=== PATIENT | male | born 1980 | race African-American/Black ===

== ENCOUNTER 2020-10-05 18:51 | Emergency (ER) | payer OTHER ==
[2020-10-05 18:58] VITALS: TEMP 97; BMI 32.5
[2020-10-05 20:50] LABS: BASO % 0.9 % (0-2.0); EOS % 3.9 % (0-4.5); HEMATOCRIT 55.3 % (35.4-49); HEMOGLOBIN 18.4 GM/dL (11.7-16.9); LYMPH % 25.8 % (8-40); MCH 29.3 pg (25.7-33.7); MCHC 33.3 g/dl (32.0-35.9); MEAN CELL VOLUME 88.1 fl (80-96); MONO % 9.1 % (3.8-10.2); NEUT % 60.3 % (42.8-82.8); PLATELET COUNT 230 10^3/uL (134-434); RBC 6.28 M/mm3 (4.00-5.60); RDW 14.3 % (11.9-15.9); WHITE BLOOD COUNT 8.9 K/mm3 (4.0-10.0)
[2020-10-05 21:09] LABS: CHLORIDE 98 mmol/L (98-107); SODIUM 136 mmol/L (136-145)
[2020-10-05 21:11] LABS: ALBUMIN 4.2 g/dl (3.4-5.0); ANION GAP 8 MMOL/L (8-16); BLOOD UREA NITROGEN 10.3 mg/dL (7-18); CALCIUM 9.5 mg/dL (8.5-10.1); CO2 30 mmol/L (21-32); GLUCOSE,RANDOM 80 mg/dL (74-106)
[2020-10-05 21:14] LABS: CREATININE 1.5 mg/dL (0.55-1.3); SGOT/AST 38 U/L (15-37); SGPT/ALT 28 U/L (13-61)
[2020-10-05 21:16] LABS: BILIRUBIN,TOTAL 0.8 mg/dL (0.2-1); TOT PROT 8.1 g/dl (6.4-8.2)
[2020-10-05 21:17] LABS: ALK PHOS 62 U/L (45-117)
[2020-10-05 22:53] LABS: EPI CELLS 4 /uL (0-25.1); HYALINE CASTS 0 /uL (0-3.1); URINE APPEARANCE CLEAR; URINE BACTERIA 6 /uL (0-1359); URINE BILIRUBIN NEGATIVE (NEGATIVE); URINE COLOR YELLOW; URINE GLUCOSE (UA) NEGATIVE (NEGATIVE); URINE KETONE TRACE (NEGATIVE); URINE LEUK ESTERASE NEGATIVE (NEGATIVE); URINE NITRITE NEGATIVE (NEGATIVE); URINE PROTEIN NEGATIVE (NEGATIVE); URINE WBC 3 /uL (0-25.8)
[2020-10-05 23:16] LABS: URINE RBC 192 /uL (0-23.9)
[2020-10-05 23:19] VITALS: BP 134/85; PULSE 103
== END 2020-10-05 23:32 | disposition home or self-care (01) ==
LOC: JER 18:51
DX: M79.602 Pain in left arm (principal); R20.2 Paresthesia of skin
CPT/HCPCS: 36415; 71046-TC-FY; 80053; 81003; 84484; 85025; 87086; 93005; 93010; 99285-25

== ENCOUNTER 2021-08-19 02:13 | Inpatient (IN) | payer SELFPAY ==
[2021-08-19 02:51] VITALS: BMI 31.3
[2021-08-19] MEDS ORDERED: SODIUM CHLORIDE 0.9% 500 ML INFUS.BAG IV ONE (03:05)
[2021-08-19] MEDS ORDERED: LORazepam 2 MG/ML SDV VIAL IVPUSH ONE ×2 (03:05→05:20)
[2021-08-19 03:43] LABS: BASO % 0.5 % (0-2.0); EOS % 0.1 % (0-4.5); HEMATOCRIT 43.9 % (35.4-49); HEMOGLOBIN 15.1 GM/dL (11.7-16.9); LYMPH % 12.8 % (8-40); MCH 29.9 pg (25.7-33.7); MCHC 34.3 g/dl (32.0-35.9); MEAN CELL VOLUME 87.2 fl (80-96); MEAN PLT VOLUME 8.4 fl (7.5-11.1); MONO % 5.8 % (3.8-10.2); NEUT % 80.8 % (42.8-82.8); PLATELET COUNT 285 10^3/uL (134-434); RBC 5.04 M/mm3 (4.00-5.60); RDW 13.2 % (11.9-15.9); WHITE BLOOD COUNT 14.2 K/mm3 (4.0-10.0)
[2021-08-19 03:50] LABS: INR 1.06 (0.83-1.09); PROTHROMBIN TIME (PATIENT) 12.2 SEC (9.7-13.0)
[2021-08-19 03:53] LABS: ACTIVATED PTT 25.4 SECONDS (25.2-36.5)
[2021-08-19 04:05] LABS: CALCIUM 9.7 mg/dL (8.5-10.1)
[2021-08-19 04:06] LABS: ALBUMIN 3.9 g/dl (3.4-5.0)
[2021-08-19 04:09] LABS: CREATININE 1.6 mg/dL (0.55-1.3)
[2021-08-19 04:11] LABS: BILIRUBIN,TOTAL 0.8 mg/dL (0.2-1); TOT PROT 7.6 g/dl (6.4-8.2)
[2021-08-19 04:14] LABS: N-TERMINAL BNP 374.7 pg/ml (5-125)
[2021-08-19] MEDS ORDERED: ASPIRIN 81 MG CHEWABLE TABLETS PO ONE (04:39)
[2021-08-19] MEDS ORDERED: HEPARIN NA (PORCINE) 5,000 UNITS/ML 1ML VIAL IVPUSH PRN ×2 (04:51)
[2021-08-19] MEDS ORDERED: HEPARIN NA (PORCINE) 5,000 UNITS/ML 1ML VIAL IVPUSH ONE (04:51)
[2021-08-19] MEDS ORDERED: ATORVASTATIN CA 80 MG TABLET (FP) PO ONE (04:54)
[2021-08-19] MEDS ORDERED: HEPARIN - 25,000 UNIT in SODIUM CHLORIDE 495 ML IV SCH (05:00)
[2021-08-19] MEDS ORDERED: ATORVASTATIN CA 80 MG TABLET (FP) ONE (05:46)
[2021-08-19] MEDS ORDERED: HEPARIN NA (PORCINE) 5,000 UNITS/ML 1ML VIAL ONE (05:47)
[2021-08-19] MEDS ORDERED: ASPIRIN 81 MG CHEWABLE TABLETS ONE (05:47)
[2021-08-19] MEDS ORDERED: NICOTINE 14 MG/24 HOURS TOPICAL PATCH TD SCH (10:00)
[2021-08-19] MEDS ORDERED: diazePAM 5 MG TABLET PO PRN (11:19)
[2021-08-19] MEDS ORDERED: CLOPIDOGREL BISULFATE 75 MG TABLET (FP) PO SCH (11:30)
[2021-08-19] MEDS ORDERED: CLOPIDOGREL BISULFATE 300 MG TABLET PO ONE (13:05)
[2021-08-19] MEDS ORDERED: CLOPIDOGREL BISULFATE 300 MG TABLET ONE (13:25)
[2021-08-19 19:30] VITALS: BP 99/70; PULSE 100; TEMP 98
[2021-08-20] MEDS ORDERED: CLOPIDOGREL BISULFATE 75 MG TABLET (FP) PO SCH (10:00)
[2021-08-20] MEDS ORDERED: ASPIRIN COATED 81 MG TABLET.EC PO SCH (10:00)
[2021-08-20] MEDS ORDERED: ATORVASTATIN CA 40 MG TABLET (FP) PO SCH (22:00)
== END 2021-08-19 14:00 | disposition short-term general hospital (02) | DRG 190 ==
LOC: JER 02:13 → JERBED 04:55
PROVIDERS: ADMIT Internal Medicine; ATTEND Internal Medicine
DX: I21.4 Non-ST elevation (NSTEMI) myocardial infarction (principal); R00.0 Tachycardia, unspecified; I12.9 Hypertensive chronic kidney disease with stage 1 through stage 4 chronic kidney disease, or unspecified chronic kidney disease; N18.9 Chronic kidney disease, unspecified; T40.5X5A Adverse effect of cocaine, initial encounter; E66.9 Obesity, unspecified; Z68.31 Body mass index [BMI] 31.0-31.9, adult; F14.188 Cocaine abuse with other cocaine-induced disorder
CPT/HCPCS: 36415; 71046-TC-FY; 80053; 80061; 83036; 83880; 84443; 84484; 85025; 85610; 85730; 93005; 93010; 93306-TC; 99285-25; C9803-CS; J1644; U0003; U0005

== ENCOUNTER 2023-04-03 11:42 | Observation (INO) | payer SELFPAY ==
[2023-04-03 11:52] VITALS: BMI 32.5
[2023-04-03] MEDS ORDERED: ASPIRIN 325 MG TABLET PO ONE (12:36)
[2023-04-03] MEDS ORDERED: LORazepam 2 MG/ML SDV VIAL IVPUSH ONE (12:38)
[2023-04-03] MEDS ORDERED: ASPIRIN 325 MG TABLET ONE (13:04)
[2023-04-03 13:10] LABS: BASO % 0.4 % (0-2.0); EOS % 0.7 % (0-4.5); HEMATOCRIT 50.1 % (35.4-49); HEMOGLOBIN 16.8 GM/dL (11.7-16.9); LYMPH % 10.4 % (8-40); MCH 29.3 pg (25.7-33.7); MCHC 33.5 g/dl (32.0-35.9); MEAN CELL VOLUME 87.4 fl (80-96); MEAN PLT VOLUME 7.7 fl (7.5-11.1); MONO % 6.5 % (3.8-10.2); PLATELET COUNT 307 10^3/uL (134-434); RBC 5.73 M/mm3 (4.00-5.60); WHITE BLOOD COUNT 16.4 K/mm3 (4.0-10.0)
[2023-04-03 13:19] LABS: INR 1.1 (0.83-1.09); PROTHROMBIN TIME (PATIENT) 12.8 SEC (9.7-13.0)
[2023-04-03 13:22] LABS: ACTIVATED PTT 29.7 SECONDS (25.2-36.5)
[2023-04-03 13:35] LABS: POTASSIUM 4.7 mmol/L (3.5-5.1)
[2023-04-03 13:37] LABS: CALCIUM 9.6 mg/dL (8.5-10.1)
[2023-04-03 13:38] LABS: ALBUMIN 3.7 g/dl (3.4-5.0); BLOOD UREA NITROGEN 10.9 mg/dL (7-18); MAGNESIUM 2.1 mg/dL (1.8-2.4)
[2023-04-03 13:41] LABS: CREATININE 1.1 mg/dL (0.55-1.3)
[2023-04-03 13:43] LABS: BILIRUBIN,TOTAL 0.4 mg/dL (0.2-1); TOT PROT 8.1 g/dl (6.4-8.2)
[2023-04-03] MEDS ORDERED: NITROGLYCERIN SUBLINGUAL 1/150 0.4 MG TAB SL PRN (17:32)
[2023-04-03] MEDS ORDERED: LORazepam 1 MG TABLET PO PRN (19:42)
[2023-04-03] MEDS: HEPARIN NA (PORCINE) 5,000 UNITS/ML 1ML VIAL SQ SCH (22:32)
[2023-04-04 08:59] LABS: BASO % 0.8 % (0-2.0); EOS % 3.5 % (0-4.5); HEMOGLOBIN 15.5 GM/dL (11.7-16.9); LYMPH % 30.2 % (8-40); MCH 29.5 pg (25.7-33.7); MCHC 33.8 g/dl (32.0-35.9); MEAN CELL VOLUME 87.3 fl (80-96); MEAN PLT VOLUME 7.8 fl (7.5-11.1); MONO % 7.7 % (3.8-10.2); NEUT % 57.8 % (42.8-82.8); PLATELET COUNT 237 10^3/uL (134-434); RBC 5.26 M/mm3 (4.00-5.60); RDW 13.9 % (11.9-15.9); WHITE BLOOD COUNT 7.8 K/mm3 (4.0-10.0)
[2023-04-04 09:13] LABS: POTASSIUM 3.4 mmol/L (3.5-5.1)
[2023-04-04 09:17] LABS: CALCIUM 9.1 mg/dL (8.5-10.1)
[2023-04-04 09:18] LABS: BLOOD UREA NITROGEN 10.1 mg/dL (7-18)
[2023-04-04 09:21] LABS: CREATININE 1.2 mg/dL (0.55-1.3)
[2023-04-04 09:31] LABS: MAGNESIUM 1.8 mg/dL (1.8-2.4)
[2023-04-04] MEDS: ASPIRIN COATED 81 MG TABLET.EC PO SCH (10:03)
[2023-04-04] MEDS: HEPARIN NA (PORCINE) 5,000 UNITS/ML 1ML VIAL SQ SCH ×2 (10:04→21:56)
[2023-04-04 10:28] LABS: N-TERMINAL BNP 9.8 pg/ml (5-125)
[2023-04-04] MEDS ORDERED: POTASSIUM CHLORIDE ORAL LIQUID 20 MEQ/15 ML PO ONE (10:45)
[2023-04-04] MEDS ORDERED: BENZOCAINE/MENTH/CETYLPYRD CL 1 EACH LOZENGE MM PRN (22:22)
[2023-04-05 01:39] VITALS: RESP 18
[2023-04-05 07:10] VITALS: TEMP 98.5
[2023-04-05 07:51] LABS: BASO % 0.8 % (0-2.0); EOS % 3.2 % (0-4.5); HEMATOCRIT 47.3 % (35.4-49); HEMOGLOBIN 15.7 GM/dL (11.7-16.9); LYMPH % 28.6 % (8-40); MCH 29.4 pg (25.7-33.7); MCHC 33.2 g/dl (32.0-35.9); MEAN CELL VOLUME 88.4 fl (80-96); MEAN PLT VOLUME 8.2 fl (7.5-11.1); MONO % 6.3 % (3.8-10.2); NEUT % 61.1 % (42.8-82.8); PLATELET COUNT 257 10^3/uL (134-434); RBC 5.35 M/mm3 (4.00-5.60); RDW 13.8 % (11.9-15.9)
[2023-04-05 08:22] LABS: POTASSIUM 3.7 mmol/L (3.5-5.1)
[2023-04-05 08:25] LABS: BLOOD UREA NITROGEN 14.2 mg/dL (7-18); CALCIUM 9.6 mg/dL (8.5-10.1)
[2023-04-05 08:26] LABS: ALBUMIN 3.3 g/dl (3.4-5.0)
[2023-04-05 08:28] LABS: CREATININE 1.3 mg/dL (0.55-1.3)
[2023-04-05 08:30] LABS: BILIRUBIN,TOTAL 0.3 mg/dL (0.2-1); TOT PROT 7.1 g/dl (6.4-8.2)
[2023-04-05] MEDS ORDERED: ATORVASTATIN CA 10 MG TABLET (FP) PO ONE (09:24)
[2023-04-05] MEDS: HEPARIN NA (PORCINE) 5,000 UNITS/ML 1ML VIAL SQ SCH (10:27)
[2023-04-05] MEDS: ASPIRIN COATED 81 MG TABLET.EC PO SCH (10:27)
[2023-04-05] MEDS: NICOTINE 21 MG/24 HOURS TOPICAL PATCH TD SCH ×2 (14:36→14:47)
[2023-04-05 16:07] VITALS: BP 137/90; PULSE 95
[2023-04-06] MEDS ORDERED: ATORVASTATIN CA 10 MG TABLET (FP) PO SCH (10:00)
== END 2023-04-05 15:25 | disposition home or self-care (01) ==
LOC: JER 11:42 → JERBED 13:31 → J4S 22:13
PROVIDERS: ADMIT Internal Medicine; ATTEND Internal Medicine
CPT/HCPCS: 0241U-QW; 36415; 71046-TC-FY; 71275-TC; 80048; 80053; 80061; 83036; 83690; 83735; 83880; 84439; 84443; 84484; 85025; 85379; 85610; 85730; 93005; 93010; 93306-TC; 99285-25; G0378; J1644; Q9967